=== PATIENT | male | born 1970 | race Caucasian/White ===

== ENCOUNTER 2016-08-20 16:09 | Outpatient (CLI) | payer OTHER ==
--- NOTE | 2016-08-21 07:34 | RAD ---
LEFT FOOT THREE VIEWS 08/20/16 There is some mild soft tissue swelling suggested in the forefoot, but no bony abnormalities were ap preciated. No fracture or area of bony destruction was seen. No periosteal reaction was present. IMPRESSION: No acute bony finding. POS: HOME
== END 2016-08-20 16:10 | disposition home or self-care (01) ==
LOC: BURRAD 16:09
PROVIDERS: ATTEND Family Medicine
DX: M79.672 Pain in left foot (principal)